=== PATIENT | female | born 1955 | race Caucasian/White ===

== ENCOUNTER 2017-01-30 09:06 | Day surgery (SDC) | payer OTHER ==
[2017-01-29 15:40] VITALS: BMI 32.2
[2017-01-30] VITALS (9 sets, daily range): BP systolic 101–156; BP diastolic 62–77; PULSE 69–95; RESP 13–22; Ht 162.6 cm; Wt 76.5 kg
[~2017-01-30] VITALS: Ht 162.6 cm; Wt 76.5 kg
[~2017-01-30 09:06] MED LIST: [UNRECOGNIZED DRUG - REMARK] ORAL
[2017-01-30] MEDS ORDERED: METOCLOPRAMIDE 10 MG INJ ONE (13:00)
[2017-01-30] MEDS ORDERED: MIDAZOLAM 1 MG/ML 2 ML INJ ONE (13:00)
[2017-01-30] MEDS ORDERED: IOHEXOL 300MG/ML 30 ML BTL ONE (13:02)
[2017-01-30] MEDS ORDERED: CEFAZOLIN 1 GM INJ ONE (13:04)
[2017-01-30] MEDS ORDERED: PROPOFOL 20 ML ONE (13:04)
[2017-01-30] MEDS ORDERED: DEXAMETHASONE 4 MG/ML 1 ML INJ ONE (13:18)
[2017-01-30] MEDS ORDERED: MEPERIDINE 25 MG INJ IV PRN (13:30)
[2017-01-30] MEDS ORDERED: ONDANSETRON 4 MG INJ IV PRN (13:30)
[2017-01-30] MEDS ORDERED: HYDROmorphONE (0.2 MG/ML) 10ML SYG IV PRN ×3 (13:30)
[2017-01-30] MEDS ORDERED: DIPHENHYDRAMINE 50 MG INJ IV PRN (13:30)
[2017-01-30] MEDS ORDERED: METOCLOPRAMIDE 10 MG INJ IV PRN (13:30)
[2017-01-30] MEDS ORDERED: EPHEDrine SULFATE 50 MG/5 ML SYG ONE (13:32)
[2017-01-30] MEDS ORDERED: GENTAMICIN 80 MG INJ ONE (13:45)
--- NOTE | 2017-01-30 16:47 | GILP ---
DATE OF PROCEDURE: 01/30/2017 PREOPERATIVE DIAGNOSIS: Common duct stones. PROCEDURE DONE: 1. Endoscopic retrograde cholangiopancreatography balloon sweep removal of stones, sludge and cast. 2. Cholangioscopy with SpyGlass DS scope. Holmium laser was not utilized. DESCRIPTION OF PROCEDURE: The patient was put in prone position on fluoroscopy table after obtaini ng informed consent and endotracheal general anesthesia was administered by Dr. Hogan and then I advanced an Olympus video therapeutic JF ERCP scope into second part of the duodenum. Previous sp hincterotomy site was easily accessed and some villous changes noted here. Then I cannulated with a balloon and a small amount dye was injected. The entire biliary system is dilated with multiple st ones. With balloon sweep, I removed biliary cast and then multiple small stones and sludge. I also entered the cystic duct. Under fluoroscopic control, the cystic duct also had stones. These were removed by balloon sweeping several times. Then I entered the left hepatic duct and right hepatic duct also with balloon swee ps. Finally, I placed a long guidewire to enter the left hepatic duct and then the balloon was rem kasi. Over this guidewire, then I advanced the SpyGlass DS [employer] cholangioscope. Cholangioscopy was continuously done of all the ducts, left hepatic and right hepatic and the cystic duct with clearing with water irrigation and suctioning. Multiple pictures were taken and removed almost all the stones and thus there were no retained stones as such can be seen. One small stone floated at the ampullary area which is less than 2 mm. I noted also some mucus cot ton candy mucin but this was not significant. The ampulla itself had some villous changes. Then th e scope was completely removed and SpyGlass scope was removed and then the scope was withdrawn back in the stomach, deflated the stomach and withdrew the scope completely out. FINAL IMPRESSION. Multiple stones and sludge in common duct, common hepatic duct, cystic duct, left hepatic duct and right hepatic duct been cleared. Hopefully, she will not come back with any furth er stones. Throughout the procedure, fluoroscopy was done and fluoroscopy interpreted by me continu ously. Dictated By: JOSE M HENRY Conf#: [id number] DID#: [id number] CC: JOSE M ONEAL M.D.; TRACEY DECKER MD;*End*
--- NOTE | 2017-01-30 17:51 | RADRPT ---
PROCEDURE: Intraoperative imaging for ERCP with fluoroscopy. CLINICAL INDICATION: Right upper quadrant pain. Intraoperative. TECHNIQUE: 12 images of the right upper quadrant of the abdomen were obtained in the operating joe m with an image intensifier. No radiologist was in attendance. 123.9 seconds of fluoroscopy time w as used. COMPARISON: 07/04/2016. FINDINGS: Images demonstrate the endoscope in position. Surgical clips are present from previous cholecystect donna. Contrast was injected into the common bile duct. The common bile duct is dilated. Filling de fects are present consistent with stones or gas bubbles. A balloon sweep was made. A stent was plac ed in the common bile duct. The pancreatic duct was not injected. IMPRESSION: 1. Dilated common bile duct with filling defects consistent with stones or gas bubbles. A balloon s weep was made and the stent was placed. RPTAT: QQ .Ramesh Butler MD, Date Time Electronically viewed and signed by .Ramesh Butler MD, on 01/30/2017 17:51 .R/
== END 2017-01-30 15:27 | disposition home or self-care (01) ==
LOC: GIL 09:06 → SDS 09:06
PROVIDERS: ATTEND Internal Medicine
DX: K80.50 Calculus of bile duct without cholangitis or cholecystitis without obstruction (principal)
CPT/HCPCS: 43264; 74330; J0690; J1100; J1580; J2250; J2765; Q9967; Z7512; Z7610